=== PATIENT | male | born 1960 | race Caucasian/White ===

== ENCOUNTER → 2020-07-13 09:37 | Outpatient (BNVA) | payer OTHER, SELFPAY | PROVIDERS: PCP Internal Medicine; Referring Provider Internal Medicine; Visit Provider Nurse Practitioner | DX: R19.7 Diarrhea, unspecified (principal) | CPT/HCPCS: 99212 ==

== ENCOUNTER 2020-08-09 09:42 | Outpatient (REF) | payer OTHER, SELFPAY ==
--- NOTE | 2020-08-09 09:46 | US_ITS ---
EXAMINATION: US ABDOMEN LIMITED CLINICAL INFORMATION: Diarrhea, unspecified. COMPARISON: None TECHNIQUE: Real-time imaging of the right upper quadrant abdominal viscera. FINDINGS: PANCREAS: The head and the body of the pancreas is homogeneous in echotexture. The tail of the pancreas is obscured by overlying gas. LIVER: The liver is normal in size. The liver contour is normal. Parenchymal echogenicity is normal. There is an anechoic cyst in the left hepatic lobe measuring 1.0 x 0.5 x 0.6 cm. There is no intrahepatic biliary duct dilatation seen. GALLBLADDER: Normal. The gallbladder is physiologically distended without evidence of stones, sludge, polyps, wall thickening or pericholecystic fluid. COMMON BILE DUCT: Normal in caliber measuring 0.5 cm in diameter. RIGHT KIDNEY: There is mild increased renal echogenicity. There is an anechoic cyst in the upper pole measuring 1.8 x 1.8 x 1.7 cm and a cyst in midpole measuring 3.6 x 2.2 x 3.4 cm. No hydronephrosis or renal calculi. The kidney measures 10.1 cm in maximum dimension. FREE FLUID: None. US/US abdomen limited IMPRESSION: 1. At least 2 right renal cysts. No echogenic calculi or hydronephrosis in the right kidney. 2. Left hepatic lobe cyst measuring 1.0 cm. 3. CBD, gallbladder and the visualized pancreas is unremarkable.
== END 2020-08-09 09:43 | disposition home or self-care (01) ==
LOC: HO.US 09:42
PROVIDERS: Visit Provider Nurse Practitioner
DX: R19.7 Diarrhea, unspecified (principal)
CPT/HCPCS: 76705

== ENCOUNTER → 2020-09-01 08:55 | Outpatient (BNVA) | payer OTHER, SELFPAY | PROVIDERS: PCP Internal Medicine; Visit Provider Nurse Practitioner | DX: Z76.89 Persons encountering health services in other specified circumstances (principal) ==

== ENCOUNTER → 2020-10-14 08:47 | Outpatient (BNVA) | payer OTHER, SELFPAY | PROVIDERS: PCP Internal Medicine; Visit Provider Nurse Practitioner ==

== ENCOUNTER → 2020-11-21 09:24 | Outpatient (BNVA) | payer OTHER, SELFPAY | PROVIDERS: PCP Internal Medicine; Visit Provider Nurse Practitioner | DX: K58.0 Irritable bowel syndrome with diarrhea (principal); K64.9 Unspecified hemorrhoids | CPT/HCPCS: 99212 ==

== ENCOUNTER 2020-12-26 10:46 | Emergency (ER) | payer OTHER, SELFPAY ==
--- NOTE | ~2020-12-26 | US_ITS ---
EXAMINATION: US ABDOMEN LIMITED CLINICAL INFORMATION: Right upper quadrant/epigastric pain. COMPARISON: Previous abdominal ultrasound August 2020 TECHNIQUE: Real-time imaging of the right upper quadrant abdominal viscera. FINDINGS: PANCREAS: The head of the pancreas is normal. The body and tail is not well visualized due to bowel gas. LIVER: Normal. The liver is normal in size. The liver contour is normal. Parenchymal echogenicity is normal. There is a 6 x 5 x 7 mm hypoechoic lesion in the left lobe of the liver. This probably represents a complex cyst. This is slightly decreased in size from 2019 exam when this measured 1 x 0.5 x 0.6 cm. No other focal liver lesion is seen. There is no intrahepatic biliary duct dilatation. GALLBLADDER: Normal. The gallbladder is physiologically distended without evidence of stones, sludge, polyps, wall thickening or pericholecystic fluid. COMMON BILE DUCT: Normal in caliber measuring 0.4 cm in diameter. RIGHT KIDNEY: There are 2 peripelvic cysts measuring 2.6 x 2.3 x 2.6 cm in the midpole and 1.5 cm in the upper pole. No hydronephrosis. No renal calculi or focal parenchymal lesions. The kidney measures 10 cm in maximum dimension. FREE FLUID: None. US/US abdomen limited IMPRESSION: Normal-appearing gallbladder. Probable complex cyst in the left lobe of the liver. Left renal peripelvic cysts. Limited visualization of the pancreas.
--- NOTE | ~2020-12-26 | XR_ITS ---
EXAMINATION: XR CHEST CLINICAL INFORMATION: Chest pain COMPARISON: Chest radiographs 01/20/2019, 02/07/2017. TECHNIQUE: Portable upright AP view of the chest was obtained. FINDINGS: The lungs are clear. There is no pneumothorax, airspace consolidation, groundglass opacity, or pleural reaction. No effusion. The costophrenic sulci are clear. The heart is normal in size. The hilar and mediastinal contours and bony structures are unremarkable. XR/XR chest 1V IMPRESSION: Unremarkable examination.
--- NOTE | 2020-12-26 11:01 | ECG_ITS ---
Test Reason : CP Blood Pressure : / mmHG Vent. Rate : 067 BPM Atrial Rate : 067 BPM P-R Int : 164 ms QRS Dur : 080 ms QT Int : 388 ms P-R-T Axes : 069 024 029 degrees QTc Int : 409 ms Normal sinus rhythm Normal ECG When compared with ECG of 20-JAN-2019 19:48, No significant change was found Referred By: Generic ED Physician Electronically Signed By:CHRISTOPHER HOROWITZ MD
[2020-12-26 11:02] VITALS: BP 132/86; PULSE 69; RESP 16; O2SAT 99; BMI 22.4
--- NOTE | 2020-12-26 11:22 | ED_ITS ---
HPI - Chest Pain General Chief Complaint: Chest Pain Stated Complaint: chest pain Time Seen by Provider: 12/26/20 11:13 Source: patient Mode of arrival: ambulatory History of Present Illness HPI narrative: 60-year-old male with a past medical history of anxiety, borderline hyperlipidemia, nicotine dependence presenting to the ED complaining of epigastric/RUQ abdominal pain, nonbloody diarrhea, nausea, and intermittent chest tightness x a few days. Denies fever, chills, cough, SOB, vomiting, dysuria/hematuria, flank pain Related Data Home Medications Medication Instructions Recorded Confirmed fluocinonide 0.05 % topical 0 applic TOPICAL 06/14/20 06/17/20 solution sildenafil 50 mg tablet mg PO 09/06/20 albuterol sulfate 90 mcg/actuation 2 puff INHALATION Q4-6H 11/21/20 aerosol inhaler prazosin 2 mg capsule 4 mg PO BEDTIME cap 11/21/20 12/19/20 sertraline 100 mg tablet 150 mg PO DAILY tab 12/19/20 12/19/20 trazodone 100 mg tablet 100 mg PO BEDTIME tab 12/19/20 12/19/20 Previous Rx's Medication Instructions Recorded dicyclomine 20 mg tablet 20 mg PO QID #120 tab 09/21/20 imipramine HCl 50 mg tablet 50 mg PO BEDTIME 30 Days #30 tab 12/19/20 alum-mag hydroxide-simeth [Maalox 5 ml PO 5XD PRN #30 ml 12/26/20 Advanced] famotidine [Pepcid] 20 mg PO DAILY #14 tab 12/26/20 ondansetron HCl [Zofran] 4 mg PO Q8H PRN #10 tab 12/26/20 Allergies Allergy/AdvReac Type Severity Reaction Status Date / Time seasonal allergies Allergy Unknown itchy,watery Uncoded 06/14/20 09:11 eyes Review of Systems Review of Systems: Constitutional: No Fever, No Chills Cardiovascular: + Chest Pain, No SOB, No Orthopnea, No Edema, Respiratory: No Cough, No Dyspnea Gastrointestinal: +Nausea, No Vomiting, + Diarrhea, No Constipation, + Abdominal pain, No Hematochezia, No Melena Genitourinary: No Dysuria, No Urinary Frequency, No Hematuria, No Flank Pain Musculoskeletal: No joint pain, No Myalgias, No Joint Swelling Skin: No Skin Lesions, No rash Neuro: No Weakness, No Numbness, No Headache Yes all other systems are reviewed and are negative [facility] Past Medical History Attestation statement: The following information was validated with the patient. Medical History (Updated 12/26/20 @ 14:41 by THIAGO Mckeon) Anxiety disorder, unspecified Bacterial infection due to H. pylori Borderline hypercholesterolemia Nicotine dependence, unspecified, uncomplicated Surgical History History of colonoscopy Family History Family History Father No problems noted. Mother No problems noted. Social History Social History (Updated 11/21/20 @ 09:25 by Kaitlyn Childers Otilia) Alcohol intake: unknown Smoking Status: Former smoker Smoked in Last 30 Days: No Use of substances other than those prescribed or required for medical reasons: No Advance Directives: No Advance Directives Information Provided: No Physical Exam Vital Signs: Vital Signs: Last Vital Signs Temp 99.1 F 12/26/20 14:21 Pulse 62 12/26/20 14:21 Resp 18 12/26/20 14:21 BP 115/74 12/26/20 14:21 Pulse Ox 98 12/26/20 14:21 Body Mass Index 22.4 Const: General: cooperative, healthy appearing, comfortable and no acute distress Orientation/consciousness: patient oriented x3 Limitations: no limitations HENMT: Head: Yes normal to inspection Ears: hearing grossly normal bilaterally General nose exam: Normal external nose present Face and sinus: Yes normal facial exam Eyes: General: appearance normal, both eyes and all related structures EOM: EOMs intact bilaterally Neck: Neck: Yes normal visual inspection and Yes no meningeal signs Resp: Effort & Inspection: normal respiratory effort Auscultation: clear to auscultation bilaterally, no rales, no rhonchi and no wheezes Cardio: Rate: regular rate Heart sounds: S1 normal heart sound present and S2 normal heart sound present GI: Inspection: Yes normal to inspection Palpation (GI): Soft to palpation, Tenderness to palpation present (GI) in the epigastrum and in the RUQ, no guarding and not rigid : General: Yes no CVA tenderness Back/Spine/Pelvis: Back: no CVA tenderness Skin: Rashes: no rashes Wounds: no wounds Neuro: General: patient oriented x3 and no meningeal signs Gait exam (Neuro): Normal gait present Extrem: General: Yes normal to inspection Course Course Course Narrative: -WBC wnl, H&H stable, lipase mildly elevated at 106 -troponin negative XR chest 1V IMPRESSION: Unremarkable examination. US abdomen limited IMPRESSION: Normal-appearing gallbladder. Probable complex cyst in the left lobe of the liver. Left renal peripelvic cysts. Limited visualization of the pancreas. -On re-evaluation patient reports symptomatic improvement, abd soft, nontender. Results discussed including worrisome signs and symptoms and strict return precautions. Discussed need to follow-up with GI this week, he verbalized understanding of feel safe for discharge home MDM - Chest Pain MDM Narrative Medical decision making narrative: 60-year-old male with a past medical history of anxiety, borderline hyperlipidemia, nicotine dependence presenting to the ED complaining of epigastric/RUQ abdominal pain, nonbloody diarrhea, nausea, and intermittent chest tightness x a few days. On exam VSS, NAD/well-appearing, lungs CTA, abdomen soft with RUQ/epigastric TTP, no rebound or guarding. Concern for pancreatitis/cholecystitis/cholelithiasis vs GERD/gastritis vs gastroenteritis. Symptoms atypical for ACS/PE. Unlikely appendicitis/diverticulitis or colitis Plan: EKG, labs, UA, CXR, limited abdomen ultrasound Medical Records Data Attestation: I reviewed the patient's medical records. Lab Data Attestation: I reviewed the patient's lab results. Result diagrams: 12/26/20 11:53 12/26/20 11:53 Labs: Lab Results 12/26/20 12/26/20 12/26/20 Range/Units 11:53 11:53 11:53 WBC 9.1 (4.8-10.8) X10*3/uL RBC 6.74 H (4.60-5.80) X10*6/uL Hgb 13.5 L (14.0-18.0) g/dl Hct 42.6 (42-52) % MCV 63.2 L (80-98) fL MCH 20.0 L (27.0-33.0) pg MCHC 31.7 (31.0-36.0) g/dl RDW 18.0 H (11.0-16.0) % Plt Count 254 (160-400) X10*3/uL MPV 10.3 (9.4-12.4) fL Immature Gran % (Auto) 1.0 H (0.0-0.4) % Neut % (Auto) 70.0 (45-73) % Lymph % (Auto) 15.9 L (20-40) % [place] % (Auto) 7.9 (2-11) % Eos % (Auto) 4.7 H (0-4) % Baso % (Auto) 0.5 (0-2) % Lymph # (Auto) 1.5 (1.2-4.9) X10*3/uL [place] # (Auto) 0.7 (0.1-1.2) X10*3/uL Eos # (Auto) 0.4 (0.0-0.4) X10*3/uL Baso # (Auto) 0.1 (0.0-0.2) X10*3/uL Abs Immat Gran (auto) 0.09 H (0.00-0.03) X10*3/uL Absolute Neuts (auto) 6.4 (2.0-8.3) X10*3/uL Absolute Nucleated RBC 0.000 (0.0-0.012) X10*3/uL Nucleated RBC % (auto) 0.0 (0.0-0.2) /100WBC Hold Blue Top SEE NOTE Sodium 138 (135-145) mmol/L Potassium 4.2 (3.3-5.1) mmol/L Chloride 107 (96-108) mmol/L Carbon Dioxide 21 L (22-29) mmol/L Anion Gap 14 (12-20) BUN 13 (9-16) mg/dL Creatinine 1.01 (0.5-1.4) mg/dL Estim Creat Clear Calc 69.0 Estimated GFR > 60 Random Glucose 84 (60-115) mg/dL Calcium 9.2 (8.4-10.2) mg/dL Magnesium 2.2 (1.6-2.6) mg/dL Total Bilirubin 0.8 (0.0-1.0) mg/dL Direct Bilirubin 0.3 (0.0-0.5) mg/dL AST 20 (5-37) U/L ALT 22 (0-40) U/L Alkaline Phosphatase 71 (39-117) U/L Troponin I High Sens (<3.5-35.0) ng/L Total Protein 6.8 (6.5-8.0) g/dL Albumin 4.3 (3.5-5.0) g/dL Lipase 106 H (8-78) U/L Urine Color Urine Appearance Urine pH (5.0-8.0) Ur Specific [place] (1.005-1.025) Urine Protein (NEG-TRACE) MG/DL Urine Glucose (UA) (NEG) MG/DL Urine Ketones (NEG) MG/DL Urine Blood (NEG) Urine Nitrite (NEG) Ur Leukocyte Esterase (NEG) Urine RBC (0) /HPF Urine WBC (0-4) /HPF Ur Squamous Epith Cells /LPF Urine Bacteria /LPF 12/26/20 12/26/20 Range/Units 11:53 13:29 WBC (4.8-10.8) X10*3/uL RBC (4.60-5.80) X10*6/uL Hgb (14.0-18.0) g/dl Hct (42-52) % MCV (80-98) fL MCH (27.0-33.0) pg MCHC (31.0-36.0) g/dl RDW (11.0-16.0) % Plt Count (160-400) X10*3/uL MPV (9.4-12.4) fL Immature Gran % (Auto) (0.0-0.4) % Neut % (Auto) (45-73) % Lymph % (Auto) (20-40) % [place] % (Auto) (2-11) % Eos % (Auto) (0-4) % Baso % (Auto) (0-2) % Lymph # (Auto) (1.2-4.9) X10*3/uL [place] # (Auto) (0.1-1.2) X10*3/uL Eos # (Auto) (0.0-0.4) X10*3/uL Baso # (Auto) (0.0-0.2) X10*3/uL Abs Immat Gran (auto) (0.00-0.03) X10*3/uL Absolute Neuts (auto) (2.0-8.3) X10*3/uL Absolute Nucleated RBC (0.0-0.012) X10*3/uL Nucleated RBC % (auto) (0.0-0.2) /100WBC Hold Blue Top Sodium (135-145) mmol/L Potassium (3.3-5.1) mmol/L Chloride (96-108) mmol/L Carbon Dioxide (22-29) mmol/L Anion Gap (12-20) BUN (9-16) mg/dL Creatinine (0.5-1.4) mg/dL Estim Creat Clear Calc Estimated GFR Random Glucose (60-115) mg/dL Calcium (8.4-10.2) mg/dL Magnesium (1.6-2.6) mg/dL Total Bilirubin (0.0-1.0) mg/dL Direct Bilirubin (0.0-0.5) mg/dL AST (5-37) U/L ALT (0-40) U/L Alkaline Phosphatase (39-117) U/L Troponin I High Sens < 3.5 (<3.5-35.0) ng/L Total Protein (6.5-8.0) g/dL Albumin (3.5-5.0) g/dL Lipase (8-78) U/L Urine Color YELLOW Urine Appearance CLEAR Urine pH 5.5 (5.0-8.0) Ur Specific [place] 1.020 (1.005-1.025) Urine Protein NEG (NEG-TRACE) MG/DL Urine Glucose (UA) NEG (NEG) MG/DL Urine Ketones NEG (NEG) MG/DL Urine Blood TRACE (NEG) Urine Nitrite NEG (NEG) Ur Leukocyte Esterase NEG (NEG) Urine RBC 0-2 (0) /HPF Urine WBC 0 (0-4) /HPF Ur Squamous Epith Cells TRACE /LPF Urine Bacteria NONE /LPF Discharge Plan Discharge Clinical Impression: Pancreatitis Qualifiers: Chronicity: acute Pancreatitis type: unspecified pancreatitis type Acute pancreatitis complication: unspecified Qualified Code(s): K85.90 - Acute pancr eatitis without necrosis or infection, unspecified Patient Disposition: Home, Self-Care Instructions: Pancreatitis (ED), Low Fat Diet (ED) Additional Instructions: Your blood work showed an elevation in your pancreatic enzymes Zofran as antinausea medication, take as needed Tylenol and Zofran will help with pain It is important that her staying hydrated at home practice a low fat diet for the few days You need to follow-up with GI If your symptoms persist or worsen, your pain becomes unbearable, you are unable to do drink, persistent nausea/vomiting return to the ED Prescriptions: New ondansetron HCl [Zofran] 4 mg tablet 4 mg PO Q8H PRN (Reason: nausea and vomiting) Qty: 10 RF: 0 famotidine [Pepcid] 20 mg tablet 20 mg PO DAILY Qty: 14 RF: 0 alum-mag hydroxide-simeth [Maalox Advanced] 200-200-20 mg/5 mL suspension 5 ml PO 5XD PRN (Reason: indigestion) Qty: 30 RF: 0 No Action dicyclomine 20 mg tablet 20 mg PO QID Qty: 120 RF: 3 fluocinonide 0.05 % solution 0 applic topical RF: 0 trazodone 100 mg tablet 100 mg PO BEDTIME RF: 0 sertraline 100 mg tablet 150 mg PO DAILY RF: 0 imipramine HCl 50 mg tablet 50 mg PO BEDTIME 30 Days Qty: 30 RF: 6 prazosin 2 mg capsule 4 mg PO BEDTIME RF: 0 Referrals: Billy Ramirez MD [Primary Care Provider] - 2 days
[2020-12-26] MEDS: 0.9 % Sodium Chloride 1,000 ML 999 ML IVCONT (11:54)
[2020-12-26] MEDS: ondansetron HCL 4 MG/2 ML VIAL IVPUSH (11:54)
[2020-12-26] MEDS: Famotidine/PF 20 MG/2 ML VIAL IVPUSH (11:54)
[2020-12-26] MEDS: Magnesium Hydrox/Alum Hydrox 30 ML ORAL.SUSP PO (11:55)
[2020-12-26] MEDS: Lidocaine HCl Viscous 2 % 15 ML SOLUTION MUCOUS MEM (11:55)
[2020-12-26 12:00] VITALS: BP 118/76; PULSE 60; RESP 16; TEMP 36.6; O2SAT 97
[2020-12-26 12:08] LABS: MANUAL DIFF FLAG NO
[2020-12-26 12:10] LABS: Basophils Absolute Auto 0.1 X10*3/uL (0.0-0.2); Basophils Percent Auto 0.5 % (0-2); Eosinophils Absolute Auto 0.4 X10*3/uL (0.0-0.4); Eosinophils Percent Auto 4.7 % (0-4); Hematocrit 42.6 % (42-52); Hemoglobin 13.5 g/dl (14.0-18.0); Imm Gran Abs Auto 0.09 X10*3/uL (0.00-0.03); Lymphocytes Absolute Auto 1.5 X10*3/uL (1.2-4.9); Lymphocytes Percent Auto 15.9 % (20-40); Mean Corpuscular HGB Conc 31.7 g/dl (31.0-36.0); Mean Platelet Volume 10.3 fL (9.4-12.4); Monocytes Absolute Auto 0.7 X10*3/uL (0.1-1.2); Monocytes Percent Auto 7.9 % (2-11); Neutrophils Absolute Auto 6.4 X10*3/uL (2.0-8.3); Platelet Count 254 X10*3/uL (160-400); Red Blood Count 6.74 X10*6/uL (4.60-5.80); White Blood Count 9.1 X10*3/uL (4.8-10.8)
[2020-12-26 12:13] LABS: Mean Corpuscular Volume 63.2 fL (80-98)
[2020-12-26 12:37] VITALS: BP 118/76; PULSE 68; RESP 13; TEMP 36.7; O2SAT 100
[2020-12-26 12:47] LABS: Troponin-I High Sensitivity < 3.5 ng/L (<3.5-35.0)
[2020-12-26 12:48] LABS: Alanine Aminotransferase 22 U/L (0-40); Albumin Level 4.3 g/dL (3.5-5.0); Alkaline Phosphatase 71 U/L (39-117); Anion Gap 14 (12-20); Aspartate Amino Transferase 20 U/L (5-37); Bilirubin Direct 0.3 mg/dL (0.0-0.5); Bilirubin Total 0.8 mg/dL (0.0-1.0); Blood Urea Nitrogen 13 mg/dL (9-16); Calcium 9.2 mg/dL (8.4-10.2); Carbon Dioxide 21 mmol/L (22-29); Chloride 107 mmol/L (96-108); Estimated Glomerular Filt Rate > 60; Glucose Random 84 mg/dL (60-115); Magnesium 2.2 mg/dL (1.6-2.6); Potassium 4.2 mmol/L (3.3-5.1); Sodium 138 mmol/L (135-145); Total Protein 6.8 g/dL (6.5-8.0)
[2020-12-26 13:01] VITALS: BP 120/79; PULSE 65; RESP 18; O2SAT 100
[2020-12-26 13:03] LABS: Lipase 106 U/L (8-78)
[2020-12-26 13:41] LABS: Glucose Urine UA NEG (NEG); Leukocyte Esterase Urine NEG (NEG); Nitrite Urine NEG (NEG); PH 5.5 (5.0-8.0); Urine Blood TRACE (NEG); Urine Ketones NEG (NEG); Urine Protein NEG (NEG-TRACE)
[2020-12-26 13:42] LABS: Appearance Urine CLEAR; Color Urine YELLOW
[2020-12-26 13:51] LABS: RBC Urine 0-2 /HPF (0); Squamous Epithelial Cell Urine TRACE /LPF; WBC Urine 0 /HPF (0-4)
[2020-12-26 14:21] VITALS: BP 115/74; PULSE 62; RESP 18; TEMP 37.3; O2SAT 98
[2020-12-26 14:23] VITALS: PULSE 68
--- NOTE | 2020-12-26 14:25 | PC.NURSE ---
Pt denies complaints or needs, states he is feeling much better than when he arrived, ambulating with steady gait, no apparent distress, vsss. awaiting dispo
== END 2020-12-26 15:16 | disposition home or self-care (01) ==
PROVIDERS: Physician Assistant; Emergency Provider Emergency Medicine; PCP Internal Medicine
DX: K85.90 Acute pancreatitis without necrosis or infection, unspecified (principal); F41.9 Anxiety disorder, unspecified; E78.5 Hyperlipidemia, unspecified; F17.210 Nicotine dependence, cigarettes, uncomplicated
CPT/HCPCS: 36415; 71045; 76705; 80048; 80076; 81001; 83690; 83735; 84484; 85025; 93005; 96361; 96374; 96375; 99284; 99285; J2405

== ENCOUNTER → 2021-01-19 10:33 | Outpatient (BNVA) | payer OTHER, SELFPAY | PROVIDERS: PCP Internal Medicine; Visit Provider Nurse Practitioner ==

== ENCOUNTER 2021-02-08 05:35 | Emergency (ER) | payer OTHER, SELFPAY ==
--- NOTE | ~2021-02-08 | XR_ITS ---
EXAMINATION: XR CHEST CLINICAL INFORMATION: Shortness of breath COMPARISON: 12/26/2020 TECHNIQUE: Frontal view of the chest was obtained. FINDINGS: The lungs are clear with no focal consolidation. No evidence of pneumothorax, pulmonary edema, or pleural effusions. The cardiomediastinal silhouette is unremarkable. No acute osseous findings. XR/XR chest 1V IMPRESSION: No acute cardiopulmonary findings.
[2021-02-08 06:08] VITALS: BP 131/74; PULSE 79; RESP 20; TEMP 37.2; O2SAT 95; BMI 22.4
--- NOTE | 2021-02-08 06:11 | ECG_ITS ---
Test Reason : SOB Blood Pressure : / mmHG Vent. Rate : 075 BPM Atrial Rate : 075 BPM P-R Int : 146 ms QRS Dur : 078 ms QT Int : 372 ms P-R-T Axes : 070 026 024 degrees QTc Int : 415 ms Normal sinus rhythm Normal ECG When compared with ECG of 26-DEC-2020 11:02, No significant change was found Referred By: Carlie Rosario Electronically Signed By:CHRISTOPHER HOROWITZ MD
--- NOTE | 2021-02-08 06:11 | ED_ITS ---
HPI - SOB/Dyspnea General Chief Complaint: Dyspnea Stated Complaint: Sob/Asthma Time Seen by Provider: 02/08/21 06:11 Source: patient Mode of arrival: ambulatory History of Present Illness HPI Narrative: This is a 60-year-old male with presentation worsening shortness of breath over the past couple of days without fever, chills, nausea, vomiting, chest pain/palpitations, thought knee, bilateral lower extremity edema. Although patient denies sore throat he states he has had a cough. Related Data Home Medications Medication Instructions Recorded Confirmed fluocinonide 0.05 % topical 0 applic TOPICAL 06/14/20 01/02/21 solution sildenafil 50 mg tablet mg PO 09/06/20 01/02/21 albuterol sulfate 90 mcg/actuation 2 puff INHALATION Q4-6H 11/21/20 01/02/21 aerosol inhaler prazosin 2 mg capsule 4 mg PO BEDTIME cap 11/21/20 12/19/20 sertraline 100 mg tablet 150 mg PO DAILY tab 12/19/20 12/19/20 trazodone 100 mg tablet 100 mg PO BEDTIME tab 12/19/20 12/19/20 Previous Rx's Medication Instructions Recorded dicyclomine 20 mg tablet 20 mg PO QID #120 tab 09/21/20 imipramine HCl 50 mg tablet 50 mg PO BEDTIME 30 Days #30 tab 12/19/20 alum-mag hydroxide-simeth [Maalox 5 ml PO 5XD PRN #30 ml 12/26/20 Advanced] famotidine [Pepcid] 20 mg PO DAILY #14 tab 12/26/20 ondansetron HCl [Zofran] 4 mg PO Q8H PRN #10 tab 12/26/20 Allergies Allergy/AdvReac Type Severity Reaction Status Date / Time seasonal allergies Allergy Unknown itchy,watery Uncoded 01/02/21 07:46 eyes Review of Systems Review of Systems: Pertinent positives and negatives as stated in HPI 10 point review of systems is otherwise negative. [facility] Past Medical History Source: nursing notes reviewed Medical History Anxiety disorder, unspecified Bacterial infection due to H. pylori Borderline hypercholesterolemia Nicotine dependence, unspecified, uncomplicated Surgical History History of colonoscopy Family History Family History Father No problems noted. Mother No problems noted. Social History Social History Alcohol intake: never Smoked in Last 30 Days: No Use of substances other than those prescribed or required for medical reasons: No Advance Directives: No Physical Exam Vital Signs: Vital Signs: Last Vital Signs Temp 99.0 F 02/08/21 06:08 Pulse 70 02/08/21 06:37 Resp 18 02/08/21 06:37 BP 128/74 02/08/21 06:37 Pulse Ox 100 02/08/21 06:37 Body Mass Index 22.4 VITAL SIGNS: Reviewed. GENERAL: Well developed, well nourished, in no acute distress. HEAD: Normocephalic/atraumatic EYES: PERRLA, EOMI OROPHARYNX: no oral lesions noted, posterior pharynx clear NECK: Supple, no adenopathy LUNGS: Normal breath sounds. No adventitious sounds or accessory muscle use. SpO2<95> CARDIOVASCULAR: Regular rate and rhythm without noted murmurs, no JVD or lower extremity edema. ABDOMEN: Soft, non-tender, non-distended with bowel sounds. NEUROLOGIC: Alert and oriented x 4. Course Course Course Narrative: 60-year-old male with history and clinical presentation consistent with asthma exacerbation. Signed out to Dr Rich MDM - SOB/Dyspnea Lab Data Result diagrams: 02/08/21 06:33 02/08/21 06:33 Discharge Plan Discharge Clinical Impression: Asthma exacerbation Patient Disposition: Home, Self-Care Prescriptions: No Action dicyclomine 20 mg tablet 20 mg PO QID Qty: 120 RF: 3 ondansetron HCl [Zofran] 4 mg tablet 4 mg PO Q8H PRN (Reason: nausea and vomiting) Qty: 10 RF: 0 famotidine [Pepcid] 20 mg tablet 20 mg PO DAILY Qty: 14 RF: 0 alum-mag hydroxide-simeth [Maalox Advanced] 200-200-20 mg/5 mL suspension 5 ml PO 5XD PRN (Reason: indigestion) Qty: 30 RF: 0 fluocinonide 0.05 % solution 0 applic topical RF: 0 albuterol sulfate 90 mcg/actuation HFA aerosol inhaler 2 puff inhalation Q4-6H RF: 0 sildenafil 50 mg tablet PO RF: 0 trazodone 100 mg tablet 100 mg PO BEDTIME RF: 0 sertraline 100 mg tablet 150 mg PO DAILY RF: 0 imipramine HCl 50 mg tablet 50 mg PO BEDTIME 30 Days Qty: 30 RF: 6 prazosin 2 mg capsule 4 mg PO BEDTIME RF: 0
[2021-02-08] MEDS: Albuterol Sulfate (0.083%) 2.5 MG/3 ML VIAL.NEB 10 MG INHALE (06:21)
[2021-02-08 06:24] VITALS: PULSE 74; O2SAT 94
[2021-02-08 06:37] VITALS: BP 128/74; PULSE 70; RESP 18; O2SAT 100
[2021-02-08 06:37] LABS: MANUAL DIFF FLAG NO
[2021-02-08 06:41] LABS: Basophils Absolute Auto 0.1 X10*3/uL (0.0-0.2); Basophils Percent Auto 0.5 % (0-2); Eosinophils Absolute Auto 0.9 X10*3/uL (0.0-0.4); Eosinophils Percent Auto 7.3 % (0-4); Hematocrit 40.9 % (42-52); Hemoglobin 13.2 g/dl (14.0-18.0); Imm Gran Abs Auto 0.08 X10*3/uL (0.00-0.03); Imm Gran Pct Auto 0.6 % (0.0-0.4); Lymphocytes Absolute Auto 1.4 X10*3/uL (1.2-4.9); Mean Corpuscular HGB Conc 32.3 g/dl (31.0-36.0); Mean Corpuscular Hemoglobin 20.4 pg (27.0-33.0); Mean Platelet Volume 9.7 fL (9.4-12.4); Monocytes Absolute Auto 1.1 X10*3/uL (0.1-1.2); Monocytes Percent Auto 8.4 % (2-11); Neutrophils Percent Auto 72.2 % (45-73); Platelet Count 223 X10*3/uL (160-400); Red Blood Count 6.48 X10*6/uL (4.60-5.80); Red Cell Distribution Width 18.2 % (11.0-16.0); White Blood Count 12.5 X10*3/uL (4.8-10.8)
[2021-02-08] MEDS: methylPREDNISolone Sod Succ 125 MG/2 ML VIAL IVPUSH (06:42)
[2021-02-08 06:45] LABS: Mean Corpuscular Volume 63.1 fL (80-98)
[2021-02-08 07:10] LABS: Alanine Aminotransferase 10 U/L (0-40); Albumin Level 3.8 g/dL (3.5-5.0); Alkaline Phosphatase 77 U/L (39-117); Anion Gap 11 (12-20); Aspartate Amino Transferase 24 U/L (5-37); Bilirubin Total 1.4 mg/dL (0.0-1.0); Blood Urea Nitrogen 10 mg/dL (9-16); Calcium 8.9 mg/dL (8.4-10.2); Carbon Dioxide 21 mmol/L (22-29); Chloride 109 mmol/L (96-108); Creatinine Clr Calc Pharmacy 67.7; Estimated Glomerular Filt Rate > 60; Glucose Random 89 mg/dL (60-115); Potassium 4.3 mmol/L (3.3-5.1); Sodium 137 mmol/L (135-145); Total Protein 6.6 g/dL (6.5-8.0)
[2021-02-08] MEDS: Magnesium Sulfate/H2O 2 GM/50 ML PIGGYBACK IV (07:20)
[2021-02-08 07:48] LABS: COVID-19 Test Negative (Negative)
[2021-02-08 08:13] VITALS: BP 112/68; PULSE 95; RESP 20; TEMP 36.8; O2SAT 93
[2021-02-08] MEDS: Albuterol Sulfate (0.083%) 2.5 MG/3 ML VIAL.NEB 5 MG INHALE (08:20)
[2021-02-08 08:21] VITALS: PULSE 82; O2SAT 91
== END 2021-02-08 10:08 | disposition home or self-care (01) ==
PROVIDERS: Student in an Organized Health Care Education/Training Program; Emergency Provider Emergency Medicine; PCP Internal Medicine
DX: J45.901 Unspecified asthma with (acute) exacerbation (principal); R60.0 Localized edema; Z20.822 Contact with and (suspected) exposure to COVID-19; R05 Cough; F17.210 Nicotine dependence, cigarettes, uncomplicated
CPT/HCPCS: 36415; 71045; 80053; 85025; 87635; 93005; 94640; 94644; 94645; 96365; 96366; 96374; 99284; J2930; J3475

== ENCOUNTER → 2021-02-17 09:14 | Outpatient (BNVA) | payer OTHER, SELFPAY | PROVIDERS: Visit Provider Nurse Practitioner ==